=== PATIENT | female | born 1985 | race Hispanic/Latino ===

== ENCOUNTER 2024-12-15 10:31 | Emergency (ER) | payer OTHER ==
[~2024-12-15] VITALS: Ht 154.9 cm; Wt 92.5 kg
[2024-12-15 11:06] VITALS: TEMP 98.7
[2024-12-15] MEDS: PROCHLORPERAZINE EDISYLATE 5 MG/ML VIAL IV ONE (11:45)
[2024-12-15] MEDS: KETOROLAC TROMETHAMINE 30 MG/ML VIAL IV STA (11:45)
[2024-12-15] MEDS: ACETAMINOPHEN 325 MG TAB PO ONE (11:45)
[2024-12-15] MEDS: DIPHENHYDRAMINE HCL INJ 50 MG/ML VIAL IV ONE (11:45)
[2024-12-15] MEDS: SODIUM CHLORIDE 0.9% 1000ML 1,000 ML IV ONE (11:46)
[2024-12-15 14:23] VITALS: PULSE 89; RESP 18
[2024-12-15 14:25] VITALS: BP 114/69; PULSE 89; O2SAT 100
== END 2024-12-15 14:20 | disposition home or self-care (01) ==
LOC: ER 10:58
DX: R51.9 Headache, unspecified (principal); H53.8 Other visual disturbances
CPT/HCPCS: 36415; 84702; 96374; 96375; 99283; J0780; J1200; J1885; J7030